=== PATIENT | female | born 1990 | race Two or more races ===

== ENCOUNTER → 2025-06-26 | Outpatient (REF) | payer OTHER ==
[~2025-06-26] MED LIST: IRON65TA2 PO; PRENTAB9 PO; TUMS500C PO
== END ==
LOC: M SFHCWAGY 12:51
PROVIDERS: ATTEND Specialist
DX: Z34.83 Encounter for supervision of other normal pregnancy, third trimester (principal)

== ENCOUNTER 2025-07-03 07:02 | Inpatient (IN) | payer OTHER ==
[~2025-07-03] VITALS: Ht 160 cm; Wt 137.6 kg
[2025-07-03] VITALS (10 sets, daily range): BP systolic 115–144; BP diastolic 61–100; TEMP 97.3; O2SAT 95–98
[2025-07-03] MEDS ORDERED: ONDANSETRON 4MG/2ML VIAL As Ordered ONE (07:33)
[2025-07-03] MEDS ORDERED: dexAMETHasone 4 MG/ML 1 ML VIAL As Ordered ONE (07:33)
[2025-07-03] MEDS ORDERED: ACETAMINOPHEN 1000MG/100ML IV BAG As Ordered ONE (07:34)
[2025-07-03] MEDS ORDERED: LR 1,000 ML IV SCH (07:35)
[2025-07-03] MEDS ORDERED: KETOROLAC 30 MG/ML 1 ML VIAL As Ordered ONE (07:36)
[2025-07-03] MEDS ORDERED: MORPHINE PRES-FREE INJ 10 MG/10 ML VIAL As Ordered ONE (07:37)
[2025-07-03] MEDS ORDERED: PRENTAB9 PO (07:48)
[2025-07-03] MEDS ORDERED: IRON65TA2 PO (07:49)
[2025-07-03] MEDS ORDERED: TUMS500C PO (07:49)
[2025-07-03] MEDS: BICITRA 30 ML SOLN UDC PO ONE (08:09)
[2025-07-03] MEDS: ceFAZolin SODIUM 3 GM in DEXTROSE 5% (D5W) MINI-BAG PLU 100 ML IV ONE (08:09)
[2025-07-03 08:10] LABS: PLATELET COUNT, AUTOMATED 236 10^3/uL (150-450)
[2025-07-03 09:11] LABS: HEPATITIS C VIRUS ABY INDEX < 0.02 INDEX (<0.8)
[2025-07-03 09:32] LABS: CORD GAS ABE A -1.3; CORD GAS ABE V -1.5; CORD GAS HCO3 A 25.9 MMOL/L; CORD GAS HCO3 V 24.6 MMOL/L; CORD GAS O2 SAT A 29.5 %; CORD GAS O2 SAT V 48.6 %; CORD GAS PCO2 A 52.8 mmHg; CORD GAS PCO2 V 46.2 mmHg; CORD GAS PH A 7.308 UNITS; CORD GAS PH V 7.344 UNITS; CORD GAS PO2 A 14.6 mmHg; CORD GAS PO2 V 20.4 mmHg; CORD GAS SBC A 21.7 MMOL/L; CORD GAS SBC V 21.9 MMOL/L; CORD GAS TCO2 A 27.5 MMOL/L; CORD GAS TCO2 V 26.0 MMOL/L
[2025-07-03 09:33] LABS: HEPATITIS B SURFACE ANTIBODY POSITIVE (POSITIVE)
[2025-07-03] MEDS ORDERED: RHOGAM 300MCG (1500IU) INJ IM SCH (09:45)
[2025-07-03] MEDS ORDERED: ONDANSETRON 4MG/2ML VIAL IV PRN (09:45)
[2025-07-03] MEDS ORDERED: SIMETHICONE 80MG CHEW TAB PO PRN (09:45)
[2025-07-03] MEDS ORDERED: HOME MED LIST COMPLETE! XX SCH (11:40)
[2025-07-03] MEDS: PRENATAL VITAMINS CHEWABLE TABLET PO SCH (11:43)
[2025-07-03] MEDS: LR 1,000 ML IV SCH (11:44)
[2025-07-03] MEDS: PERCOCET 5MG/325MG TAB PO PRN (11:45)
[2025-07-03 14:05] LABS: HIV 1&2 SCREEN NEGATIVE (NEGATIVE)
[2025-07-03] MEDS: KETOROLAC 30 MG/ML 1 ML VIAL IV SCH (15:20)
[2025-07-03] MEDS: diphenhydrAMINE 50 MG/ML VIAL IV PRN (15:21)
[2025-07-03] MEDS: LR 500 ML in IV 1 EA IV ONE (15:21)
[2025-07-04 02:00] VITALS: BP 134/83; O2SAT 97
[2025-07-04 06:00] VITALS: BP 109/70; O2SAT 99
[2025-07-04 07:47] LABS: PLATELET COUNT, AUTOMATED 205 10^3/uL (150-450)
[2025-07-04] MEDS: IBUPROFEN 800 MG TAB PO SCH (10:37)
[2025-07-04 11:00] VITALS: BP 157/84
[2025-07-04 18:00] VITALS: BP 135/72; O2SAT 97
[2025-07-04] MEDS: DOCUSATE SODIUM 100 MG CAPSULE PO PRN (19:57)
[2025-07-05 06:07] VITALS: BP 121/79; O2SAT 97
[2025-07-05] MEDS: MEASLES,MUMPS,RUBELLA VACCINE INJ (MMR-II) SC.IMMUN ONE (09:00)
[2025-07-05] MEDS ORDERED: IBUP80TA PO (10:33)
[2025-07-05] MEDS ORDERED: OXYC1TAB23 PO (10:33)
[2025-07-05] MEDS ORDERED: COLA100C5 PO (10:33)
[2025-07-05 12:10] VITALS: O2SAT 96
== END 2025-07-05 14:55 | disposition home or self-care (01) | DRG 540 ==
LOC: M LDI 07:02 → M OBS 11:15
PROVIDERS: ADMIT Specialist; ATTEND Specialist
PROC: 0UB70ZZ Excision of Bilateral Fallopian Tubes, Open Approach (ICD-10-PCS; 2025-07-03)
PROC: 10D00Z1 Extraction of Products of Conception, Low, Open Approach (ICD-10-PCS; principal; 2025-07-03 08:55)
DX: O34.211 Maternal care for low transverse scar from previous cesarean delivery (principal); O09.523 Supervision of elderly multigravida, third trimester; Z37.0 Single live birth; Z3A.38 38 weeks gestation of pregnancy; Z30.2 Encounter for sterilization; O13.4 Gestational [pregnancy-induced] hypertension without significant proteinuria, complicating childbirth